=== PATIENT | male | born 1995 | race Two or more races ===

== ENCOUNTER 2018-03-04 13:10 | Emergency (ER) | payer SELFPAY ==
[~2018-03-04] VITALS: Ht 177.8 cm; Wt 81.6 kg
[~2018-03-04 13:10] MED LIST: AMOX500C2; DIPH25CA6; FAM20T PO; HYDR-3682 OR; HYDROCODON-ACETAMINOPHEN; IBUP800T24; METH4PAK PO; METH4PAK26 PO
[2018-03-04] MEDS ORDERED: cefTRIAXone SOD 1,000 MG VL IM ONE (14:30)
[2018-03-04] MEDS ORDERED: LIDOCAINE 1% HCL (LOCAL ANESTH.) INJ 20ML MDV ONE (14:56)
[2018-03-04 15:02] VITALS: BP 129/83
== END 2018-03-04 15:14 | disposition home or self-care (01) ==
LOC: ER 13:22
DX: J03.90 Acute tonsillitis, unspecified (principal); Z88.8 Allergy status to other drugs, medicaments and biological substances
CPT/HCPCS: 96372; 99283; J0696; J2001

== ENCOUNTER → 2019-09-02 | Emergency (ER) | payer MEDICAID ==
[~2019-09-02] VITALS: Ht 180.3 cm; Wt 81.6 kg
[~2019-09-02] MED LIST changes: +ACETAMINOPHEN/CODEINE#3 (300/30mg) TAB PO ONE; -FAM20T PO; +FAMO20TA10 PO; +MORPHINE SULF INJ 2 MG/ML SYRINGE 1ML IV ONE; +ONDANSETRON ODT 4 MG TAB PO ONE; +SODIUM CHLORIDE 0.9% 1,000 ML IV ONE
[2019-09-02 16:06] LABS: Albumin 3.8 g/dL (3.4-5.0); Calcium 8.6 mg/dL (8.5-10.1); Magnesium 2.3 mg/dL (1.6-2.6); Potassium 4.2 mmol/L (3.5-5.1)
[2019-09-02 16:10] LABS: Bilirubin, Total 1.3 mg/dL (0.2-1.0); Total Protein 7.3 g/dL (6.4-8.2)
[2019-09-02 16:11] LABS: Basophils # (auto) 0 10 ^3/uL (0-0.2); Basophils % (auto) 0.4 % (0.0-2.0); Eosinophils # (auto) 0.1 10 ^3/uL (0-0.8); Hematocrit 45.8 % (41.0-53.0); Lymphocytes # (auto) 1.7 10 ^3/uL (0.4-5.4); Lymphocytes % (auto) 23.6 % (10.0-50.0); Mean Corpuscular Hemoglobin 29.2 pg (28.0-32.0); Mean Corpuscular Hgb Conc. 32.7 g/dL (32.0-36.0); Mean Corpuscular Volume 89.3 fL (80.0-100.0); Monocytes # (auto) 0.6 10 ^3/uL (0-1.3); Monocytes % (auto) 7.9 % (0.0-12.0); Neutrophils # (auto) 4.8 10 ^3/uL (1.6-8.6); Neutrophils % (auto) 67.1 % (37.0-80.0); Platelet Count (auto) 222 10^3/uL (140-450); Red Blood Cells 5.13 10^6/uL (4.5-5.90); Red Cell Distribution Width 13.8 % (11.8-14.3); White Blood Cell 7.1 10^3/uL (4.4-10.8)
[2019-09-02 19:43] VITALS: BP 120/66
== END | disposition home or self-care (01) ==
LOC: ER 14:32
DX: K80.20 Calculus of gallbladder without cholecystitis without obstruction (principal); E80.7 Disorder of bilirubin metabolism, unspecified
CPT/HCPCS: 36415; 74176; 76705; 80053; 80320; 82150; 83690; 83735; 85025; 96374; 99285; J2270; J7030; Q0162

== ENCOUNTER → 2019-09-09 | Emergency (ER) | payer MEDICAID ==
[~2019-09-09] VITALS: Ht 177.8 cm; Wt 81.6 kg
[~2019-09-09] MED LIST changes: -ACETAMINOPHEN/CODEINE#3 (300/30mg) TAB PO ONE; -MORPHINE SULF INJ 2 MG/ML SYRINGE 1ML IV ONE; -ONDANSETRON ODT 4 MG TAB PO ONE
[2019-09-09 16:57] VITALS: BP 144/88
[2019-09-09 18:28] LABS: Basophils # (auto) 0 10 ^3/uL (0-0.2); Basophils % (auto) 0.5 % (0.0-2.0); Eosinophils # (auto) 0.1 10 ^3/uL (0-0.8); Eosinophils % (auto) 1.4 % (0.0-7.0); Hematocrit 45.7 % (41.0-53.0); Lymphocytes # (auto) 2.1 10 ^3/uL (0.4-5.4); Lymphocytes % (auto) 23.7 % (10.0-50.0); Mean Corpuscular Hgb Conc. 32.8 g/dL (32.0-36.0); Mean Corpuscular Volume 88.4 fL (80.0-100.0); Monocytes # (auto) 0.6 10 ^3/uL (0-1.3); Monocytes % (auto) 6.3 % (0.0-12.0); Neutrophils % (auto) 68.1 % (37.0-80.0); Nucleated Red Blood Cells % 0.1 %; Platelet Count (auto) 250 10^3/uL (140-450); Red Blood Cells 5.17 10^6/uL (4.5-5.90); Red Cell Distribution Width 13.5 % (11.8-14.3); White Blood Cell 8.9 10^3/uL (4.4-10.8)
[2019-09-09 18:41] LABS: Albumin 4.1 g/dL (3.4-5.0); Calcium 8.6 mg/dL (8.5-10.1); Potassium 3.8 mmol/L (3.5-5.1)
[2019-09-09 18:43] LABS: Urine Bacteria NONE SEEN /hpf (None Seen); Urine Blood Negative /uL (Negative); Urine Mucus FEW (None Seen); Urine Specific Gravity 1.027 (1.001-1.035); Urine WBC <1 /hpf (0 - 3)
[2019-09-09 18:45] LABS: BUN/Creatinine Ratio 12.7; Bilirubin, Total 0.7 mg/dL (0.2-1.0); Total Protein 7.9 g/dL (6.4-8.2)
[2019-09-09 18:49] LABS: Alcohol, Urine < 3.0 mg/dL (0-10); Amphetamine Screen, Urine NEGATIVE (NEGATIVE); Barbiturate Scree,Urine NEGATIVE (NEGATIVE); Benzodiazephine Screen, Urine NEGATIVE (NEGATIVE); Cannabinoid Screen, Urine POSITIVE (NEGATIVE); Cocaine Screen, Urine POSITIVE (NEGATIVE); Opiate Scree,Urine NEGATIVE (NEGATIVE); Phencyclidine Screen, Urine NEGATIVE (NEGATIVE)
== END | disposition home or self-care (01) ==
LOC: ER 16:46
DX: K82.0 Obstruction of gallbladder (principal); F12.10 Cannabis abuse, uncomplicated; F14.10 Cocaine abuse, uncomplicated; K76.0 Fatty (change of) liver, not elsewhere classified; R16.0 Hepatomegaly, not elsewhere classified
CPT/HCPCS: 36415; 74176; 76705; 80053; 80307; 81001; 82150; 83690; 85025

== ENCOUNTER 2019-10-07 05:26 | Emergency (ER) | payer MEDICAID ==
[~2019-10-07] VITALS: Ht 180.3 cm; Wt 81.6 kg
[~2019-10-07 05:26] MED LIST changes: -SODIUM CHLORIDE 0.9% 1,000 ML IV ONE
[2019-10-07] MEDS ORDERED: DexAMETHasone SOD PHOS 10MG/1ML VIAL INJ IV ONE (05:45)
[2019-10-07] MEDS ORDERED: diphenhdrAMINE HCL 50 MG/1 ML VL IV ONE (05:45)
[2019-10-07] MEDS ORDERED: FAMOTIDINE (10MG/ML) 2ML VL IV ONE (05:45)
[2019-10-07] MEDS ORDERED: ONDANSETRON HCL 4 MG/2 ML VIAL IV ONE ×2 (06:15)
[2019-10-07 06:57] VITALS: BP 143/70
== END 2019-10-07 07:03 | disposition home or self-care (01) ==
LOC: ER 05:26
DX: T78.40XA Allergy, unspecified, initial encounter (principal); L50.9 Urticaria, unspecified; X58.XXXA Exposure to other specified factors, initial encounter
CPT/HCPCS: 96374; 96375; 99284; J1100; J1200; J2405; J3490

== ENCOUNTER 2019-10-22 10:42 | Emergency (ER) | payer MEDICAID ==
[2019-10-22 11:17] VITALS: BP 143/85
[2019-10-22] MEDS ORDERED: methylPREDNISolone SOD SUCC 125 MG/2 ML VL IM ONE (12:00)
[2019-10-22] MEDS ORDERED: EPINEPHrine HCL 1 MG/1 ML AMP SC ONE (12:00)
== END 2019-10-22 12:25 | disposition home or self-care (01) ==
LOC: ER 10:42
DX: T78.40XA Allergy, unspecified, initial encounter (principal); X58.XXXA Exposure to other specified factors, initial encounter
CPT/HCPCS: 96372; 99284; J0171; J2930

== ENCOUNTER 2021-09-29 07:30 | Emergency (ER) | payer MEDICAID ==
[~2021-09-29] VITALS: Ht 177.8 cm; Wt 87.9 kg
[~2021-09-29 07:30] MED LIST changes: +DIPH25CA29; -DIPH25CA6; -IBUP800T24; +IBUP800T27
[2021-09-29 08:37] VITALS: BP 133/94
[2021-09-29] MEDS ORDERED: PRED20TA2 PO (09:39)
[2021-09-29] MEDS ORDERED: HYDR-4924 PO (09:39)
[2021-09-29] MEDS ORDERED: methylPREDNISolone SOD SUCC 125 MG/2 ML VL IM ONE (09:45)
[2021-09-29] MEDS ORDERED: diphenhdrAMINE HCL 50 MG/1 ML VL IM ONE (09:45)
== END 2021-09-29 09:51 | disposition home or self-care (01) ==
LOC: ER 07:30
DX: T78.40XA Allergy, unspecified, initial encounter (principal); Z79.1 Long term (current) use of non-steroidal anti-inflammatories (NSAID); Z79.2 Long term (current) use of antibiotics; Z79.899 Other long term (current) drug therapy; Y92.89 Other specified places as the place of occurrence of the external cause
CPT/HCPCS: 96372; 99284; J1200; J2930

== ENCOUNTER 2021-10-27 08:00 | Emergency (ER) | payer MEDICAID ==
[~2021-10-27] VITALS: Ht 177.8 cm; Wt 86.8 kg
[~2021-10-27 08:00] MED LIST changes: +HYDR-4924 PO; +PRED20TA2 PO
[2021-10-27 09:30] VITALS: BP 142/76
[2021-10-27] MEDS ORDERED: PRED20TA2 PO (09:39)
[2021-10-27] MEDS ORDERED: DIPH25CA66 PO (09:39)
[2021-10-27] MEDS ORDERED: methylPREDNISolone SOD SUCC 125 MG/2 ML VL IM ONE (09:45)
[2021-10-27] MEDS ORDERED: diphenhdrAMINE HCL 50 MG/1 ML VL IM ONE (09:45)
== END 2021-10-27 10:00 | disposition home or self-care (01) ==
LOC: ER 08:00
DX: T78.49XA Other allergy, initial encounter (principal); X58.XXXA Exposure to other specified factors, initial encounter
CPT/HCPCS: 96372; 99284; J1200; J2930

== ENCOUNTER 2021-11-01 03:36 | Emergency (ER) | payer MEDICAID ==
[~2021-11-01] VITALS: Ht 177.8 cm; Wt 91.0 kg
[2021-11-01 03:36] VITALS: BP 128/90
[~2021-11-01 03:36] MED LIST changes: +DIPH25CA66 PO
[2021-11-01] MEDS ORDERED: PRED20TA2 PO (05:20)
== END 2021-11-01 05:24 | disposition home or self-care (01) ==
LOC: ER 03:36
DX: L50.9 Urticaria, unspecified (principal)

== ENCOUNTER 2022-01-20 08:25 | Emergency (ER) | payer MEDICAID, OTHER ==
[~2022-01-20] VITALS: Ht 177.8 cm; Wt 83.8 kg
[2022-01-20 09:47] VITALS: BP 135/87
[2022-01-20] MEDS ORDERED: IBUP600T27 PO (10:45)
[2022-01-20] MEDS ORDERED: BENZ100C19 PO (10:45)
[2022-01-20] MEDS ORDERED: ACET-1158 PO (10:45)
[2022-01-21] MEDS ORDERED: PRED20TA2 PO (00:07)
[2022-01-21] MEDS ORDERED: DIPH25CA66 PO (00:07)
[2022-01-21] MEDS ORDERED: EPIN0.1I11 IJ (00:10)
== END 2022-01-20 10:46 | disposition home or self-care (01) ==
LOC: ER 08:34
DX: U07.1 COVID-19 (principal); Z79.52 Long term (current) use of systemic steroids; Z79.899 Other long term (current) drug therapy
CPT/HCPCS: 36415; 87426; 87804

== ENCOUNTER 2022-01-20 23:14 | Emergency (ER) | payer MEDICAID ==
[~2022-01-20] VITALS: Ht 177.8 cm; Wt 88.9 kg
[~2022-01-20 23:14] MED LIST changes: +ACET-1158 PO; +BENZ100C19 PO; +IBUP600T27 PO
[2022-01-20 23:25] VITALS: BP 140/86
[2022-01-21] MEDS ORDERED: DexAMETHasone SOD PHOS 10MG/1ML VIAL INJ IM ONE
[2022-01-21] MEDS ORDERED: diphenhdrAMINE HCL 50 MG/1 ML VL IM ONE
[2022-01-21] MEDS ORDERED: PRED20TA2 PO (00:07)
[2022-01-21] MEDS ORDERED: DIPH25CA66 PO (00:07)
[2022-01-21] MEDS ORDERED: EPIN0.1I11 IJ (00:10)
== END 2022-01-21 02:03 | disposition home or self-care (01) ==
LOC: ER 23:17
DX: L50.0 Allergic urticaria (principal)
CPT/HCPCS: 96372; 99284; J1100; J1200

== ENCOUNTER 2024-10-20 22:53 | Emergency (ER) | payer MEDICAID ==
[~2024-10-20] VITALS: Ht 177.8 cm; Wt 89.5 kg
[~2024-10-20 22:53] MED LIST changes: -ACET-1158 PO; +ACET500T58 PO; +DIPH-753; -DIPH25CA29; +EPIN0.1I11 IJ; +IBUP-1454 PO; +IBUP-1456; -IBUP600T27 PO; -IBUP800T27
[2024-10-20] MEDS: SODIUM CHLORIDE 0.9% 1,000 ML IV ONE (23:15)
[2024-10-21 00:14] VITALS: BP 125/74; PULSE 70; RESP 18; TEMP 97.6; O2SAT 97
[2024-10-21] MEDS: FAMOTIDINE (10MG/ML) 2ML VL IV ONE (00:14)
[2024-10-21] MEDS: methylPREDNISolone SOD SUCC 125 MG/2 ML VL IV ONE (00:14)
[2024-10-21] MEDS: diphenhdrAMINE HCL 50 MG/1 ML VL IV ONE (00:14)
[2024-10-21] MEDS ORDERED: METH4PAK PO (01:48)
[2024-10-21] MEDS ORDERED: FAMO20TA10 PO (01:48)
--- NOTE | 2024-10-21 01:49 | ED.PDOC ---
HPI Allergic reaction HPI Comments 28-year-old male presents to the ED chief complaint itchy rash. Patient states symptoms started about two weeks ago has been on and off with hives he reports no known allergies denies any new pets laundry detergents foods or medications. Denies fever, chills, nausea, vomiting, chest pain, difficulty breathing, sh ortness of breath, or throat swelling. Chief Complaint: Allergic Reaction Time Seen by MD: 23:09 Primary Care Provider: dwayne Reviewed Notes: Nurses Notes, Medications, Allergies Allergies: Coded Allergies: NO KNOWN ALLERGIES (Unverified , 09/09/19) Home Meds Active Scripts Epinephrine (Anaphylaxis) (Auvi-Q) 0.1 Mg/0.1 Ml Inj, 0.3 MG IJ O PRN for 1 Day, #1 INJ 1 Refill Prov:AMBER RAZA [facility] 01/21/22 Diphenhydramine Hcl (Benadryl Allergy) 25 Mg Cap, 1 CAP PO Q4HPRN PRN, #30 CAP 0 Refills 1-2 caps PO q4-6h PRN (max 12 caps in 24 hours) Prov:AMBER RAZA [facility] 01/21/22 Prednisone (Prednisone) 20 Mg Tab, 20 MG PO DAILY for 5 Days, #5 TAB 0 Refills Prov:AMBER RAZA [facility] 01/21/22 Benzonatate (Tessalon Perles) 100 Mg Cap, 1 CAP PO TID, #21 CAP Prov:GISELLE CARVAJAL PAC 01/20/22 Ibuprofen (Ibuprofen) 600 Mg Tab, 1 TAB PO TID, #30 TAB Prov:GISELLE CARVAJAL PAC 01/20/22 Acetaminophen (Acetaminophen) 500 Mg Tab, 500 MG PO Q4HPRN PRN, #30 TAB Prov:GISELLE CARVAJAL PAC 01/20/22 Prednisone (Prednisone) 20 Mg Tab, 20 MG PO DAILY for 10 Days, #10 TAB Prov:MANUEL CHAWLA [facility]FERRAL NURSE 11/01/21 Diphenhydramine Hcl (Benadryl Allergy) 25 Mg Cap, 1 CAP PO Q6HPRN, #30 CAP 0 Refills Prov:GARETH BLACKBURN 10/27/21 Prednisone (Prednisone) 20 Mg Tab, 20 MG PO BID for 5 Days, #10 MG 0 Refills Prov:FAVGARETH LAZO MADELAINE 10/27/21 Hydroxyzine HCl (Hydroxyzine Hydrochloride) 25 Mg Tab, 25 MG PO Q8HP, #30 TAB 0 Refills Prov:STEFFANIECLIFTONGARETH MADELAINE 09/29/21 Prednisone (Prednisone) 20 Mg Tab, 20 MG PO BID for 5 Days, #10 MG 0 Refills Prov:STEFFANIEGARETH LAZO MADELAINE 09/29/21 Reported Medications Methylprednisolone (Medrol Dosepak) 4 Mg Sterling, 4 MG PO 01/22/14 Famotidine (PEPCID TABLET) 20 Mg Tb, 1 TAB PO BID, #60 TAB 5 Refills 01/22/14 Ibuprofen (Ibuprofen) 800 Mg Tab, #21 01/22/14 [Hydrocodon-Acetaminophen] No Conflict Check, #12 01/22/14 Diphenhydramine Hcl (Diphenhydramine Hcl) 25 Mg Cap, #60 01/22/14 Amoxicillin Trihydrate (Amoxicillin) 500 Mg Cap, #14 01/22/14 Methylprednisolone (Methylprednisolone) 4 Mg Sterling, 4 MG PO 12/17/11 Hydroxyzine Hcl (Hydroxyzine Hcl) 25 Mg Tab, 25 MG OR Q6HP 12/17/11 Mode of Arrival: Ambulatory Past Medical History PAST MEDICAL HISTORY: Gallstones Surgical History: Denies all surgeries Family History Family History: Reviewed,noncontributory to illness, Unknown Social History Smoker: Non-Smoker Alcohol: Occasionally Drugs: Denies Drug Use Lives In: Home All Other Systems: Reviewed and Negative (see hpi) Physical Exam General Appearance: No Apparent Distress, Normal HEENT: Pharynx Normal Neck: Full Range of Motion, Non-Tender Respiratory: Lungs Clear, No Respiratory Distress, Normal Breath Sounds Cardiovascular: No Edema, No JVD, No Murmur, No Gallop, Normal Peripheral Pulses, Regular Rate/Rhythm Breast Exam: Deferred Gastrointestinal: No Organomegaly, Non Tender, No Pulsatile Mass, Normal Bowel Sounds, Soft Genitalia: Deferred Pelvic: Deferred Rectal: Deferred Extremities: Normal capillary refill, Normal range of motion, No pedal edema Musculoskeletal : Apperance: Normal Neurologic: Alert, No Motor Deficits, Normal Affect, Normal Mood, No Sensory Deficits Cerebellar Function: Normal Reflexes: NOT DONE Skin: Dry, Normal Color, Rash (Urticarial rash noted bilateral arms face and trunk no noted excoriations or open lesions or drainage.), Warm Lymphatic: No Adenopathy Was a procedure done? Was a procedure done?: No Differential diagnosis (all) Differential Diagnosis: Anaphylaxis, Angioedema, Bronchospasm, Drug Reaction, Hypotension, Shock, Urticaria X-Ray, Labs, Meds, VS Vital Signs Date Time Temp Pulse Resp B/P (MAP) Pulse Ox O2 Delivery O2 Flow Rate FiO2 10/21/24 00:14 97.6 70 18 125/74 (91) 97 97.6 10/21/24 00:14 70 18 97 Room Air 10/20/24 23:02 97.9 62 18 124/67 96 97.9 Current Medications Medications (Trade) Dose Ordered Sig/Jose Route Start Time Stop Time Status Last Admin Methylprednisolone Sodium Succinate (Solu Medrol) 125 mg ONCE ONCE IV 10/20/24 23:15 10/20/24 23:16 DC 10/21/24 00:14 Famotidine (Pepcid Injection) 20 mg ONCE ONCE IV 10/20/24 23:15 10/20/24 23:16 DC 10/21/24 00:14 Sodium Chloride 1,000 ml @ 1,000 mls/hr Q1H ONCE IV 10/20/24 23:15 10/21/24 00:14 DC 10/20/24 23:15 Diphenhydramine HCl (Benadryl Injection) 25 mg ONCE ONCE IV 10/20/24 23:15 10/20/24 23:16 DC 10/21/24 00:14 X-Ray, Labs, Meds, VS Comment Patient was given IV fluids 1 L, Pepcid 20 mg IV push, Benadryl 25 mg IV push, and Solu-Medrol 125 mg IV push. Reports improvement in rash noted improvement visualized patient requesting discharge at this time. Script trial of Medrol Dosepak and Pepcid advised take medication as prescribed side effects discussed. Advised to follow up with his PCP in 2-3 days as needed consider referral to residential concierge symptoms persist ER return precautions given patient indicates un derstanding agrees with discharge plan of care. Time of 1ST Reevaluation: 23:30 Reevaluation 1ST: Unchanged Time of 2ND Reevaluation: 01:46 Reevaluation 2ND: Improved Patient Education/Counseling: Diagnosis, Treatment, Prognosis, Need For Follow Up Family Education/Counseling: Diagnosis, Treatment, Prognosis, Need For Follow Up SEPSIS Sepsis Screen Date sepsis recognized/suspect: Oct 20, 2024 Time Sepsis recognized/suspect: 2305 Recent Procedure: No On Antibiotic Therapy: No Respiratory Rate >20: No Heart Rate >90: No Temp<36 C (96.8 F) or >38.3 C: No SBP <90 or MAP <65 mmHG: No New Acute Mental Status Change: No Is the patient on CPAP, BIPAP,: No Vital Signs Date Time Temp Pulse Resp B/P (MAP) Pulse Ox O2 Delivery O2 Flow Rate FiO2 10/21/24 00:14 97.6 70 18 125/74 (91) 97 97.6 10/21/24 00:14 70 18 97 Room Air 10/20/24 23:02 97.9 62 18 124/67 96 97.9 Medications Medications Dose Ordered Sig/Jose Route Start Time Stop Time Status Last Admin Dose Admin Diphenhydramine HCl 25 mg ONCE ONCE IV 10/20/24 23:15 10/20/24 23:16 DC 10/21/24 00:14 Famotidine 20 mg ONCE ONCE IV 10/20/24 23:15 10/20/24 23:16 DC 10/21/24 00:14 Methylprednisolone Sodium Succinate 125 mg ONCE ONCE IV 10/20/24 23:15 10/20/24 23:16 DC 10/21/24 00:14 Sodium Chloride 1,000 ml @ 1,000 mls/hr Q1H ONCE IV 10/20/24 23:15 10/21/24 00:14 DC 10/20/24 23:15 Departure 1 Departure Time of Disposition: 01:46 Impression: Primary Impression: Allergic reaction Qualified Codes: T78.40XA - Allergy, unspecified, initial encounter Disposition: HOME / SELF CARE / HOMELESS Condition: Stable e-Prescriptions Famotidine (PEPCID TABLET) 20 Mg Tb 1 TAB PO BID for 6 Days, #12 TAB Prov: MIKHAIL BURRIS 10/21/24 Methylprednisolone (Medrol Dosepak) 4 Mg Sterling 4 MG PO UD for 6 Days, #21 TAB UAD Prov: MIKHAIL BURRIS 10/21/24 Discharged With: Spouse Critical Care Note Critical Care Time?: No Stability Stability form required: MIKHAIL Knutson Oct 21, 2024 01:49
== END 2024-10-21 02:10 | disposition home or self-care (01) ==
LOC: ER 22:53
DX: L50.9 Urticaria, unspecified (principal); T78.40XA Allergy, unspecified, initial encounter; X58.XXXA Exposure to other specified factors, initial encounter
CPT/HCPCS: 96361; 96374; 96375; 99284; J1200; J2919; J3490; J7030

== ENCOUNTER 2025-01-13 18:24 | Emergency (ER) | payer MEDICAID ==
[~2025-01-13] VITALS: Ht 180.3 cm; Wt 81.7 kg
[2025-01-13] MEDS: FAMOTIDINE (10MG/ML) 2ML VL IV ONE (19:02)
[2025-01-13] MEDS: METOCLOPRAMIDE HCL 5MG/ml INJ 2ml VIAL IV ONE (19:02)
[2025-01-13] MEDS: SODIUM CHLORIDE 0.9% 2,000 ML IV ONE (19:02)
[2025-01-13 19:19] LABS: Alanine Aminotransferase 24 U/L (7-40); Alkaline Phosphatase 68 U/L (46-116); Anion Gap 16 (5-15); BUN/Creatinine Ratio 8.4 (10.0-20.0); Calcium 10.2 mg/dL (8.7-10.4); Carbon Dioxide 23 mmol/L (20-31); Hematocrit 50.1 % (41.0-53.0); Hemoglobin 17.0 g/dL (13.5-17.5); Lipase 36 U/L (12-53); Mean Corpuscular Hemoglobin 29.5 pg (28.0-32.0); Mean Corpuscular Volume 87.2 fL (80.0-100.0); Nucleated Red Blood Cells % 0.1 %; Potassium 4.0 mmol/L (3.5-5.1)
[2025-01-13 19:24] LABS: Albumin 5.6 g/dL (3.2-4.8); Bilirubin, Total 1.4 mg/dL (0.2-1.0); Blood Urea Nitrogen 7 mg/dL (9-23); Chloride 107 mmol/L (98-107); Glucose 124 mg/dL (74-106); Sodium 146 mmol/L (136-145); Total Protein 9.0 g/dL (5.7-8.2)
--- NOTE | 2025-01-13 19:50 | ED.PDOC ---
GI ASSESSMENT HPI Comments 30-year-old male presents to the ED chief complaint nausea and vomiting times 24 hours. Patient states unable to keep anything down including clear liquids. reports some abdominal cramping. Denies diarrhea, fever, chills, anybody else with the same symptoms denies chest pain difficulty breathing or shortness of breath notes no recent travel Chief Complaint: Nausea/Vomiting Time Seen by MD: 18:33 Primary Care Provider: dwayne Reviewed Notes: Nurses Notes, Medications, Allergies Allergies: Coded Allergies: NO KNOWN ALLERGIES (Unverified , 09/09/19) Home Meds Active Scripts Epinephrine (Anaphylaxis) (Auvi-Q) 0.1 Mg/0.1 Ml Inj, 0.3 MG IJ O PRN for 1 Day, #1 INJ 1 Refill Prov:AMBER RAZA [facility] 01/21/22 Diphenhydramine Hcl (Benadryl Allergy) 25 Mg Cap, 1 CAP PO Q4HPRN PRN, #30 CAP 0 Refills 1-2 caps PO q4-6h PRN (max 12 caps in 24 hours) Prov:AMBER RAZA [facility] PICKER 01/21/22 Prednisone (Prednisone) 20 Mg Tab, 20 MG PO DAILY for 5 Days, #5 TAB 0 Refills Prov:AMBER RAZA [facility] 01/21/22 Benzonatate (Tessalon Perles) 100 Mg Cap, 1 CAP PO TID, #21 CAP Prov:GISELLE CARVAJAL PAC 01/20/22 Ibuprofen (Ibuprofen) 600 Mg Tab, 1 TAB PO TID, #30 TAB Prov:GISELLE CARVAJAL PAC 01/20/22 Acetaminophen (Acetaminophen) 500 Mg Tab, 500 MG PO Q4HPRN PRN, #30 TAB Prov:GISELLE CARVAJAL PAC 01/20/22 Prednisone (Prednisone) 20 Mg Tab, 20 MG PO DAILY for 10 Days, #10 TAB Prov:MANUEL BHAT BURR PICKER 11/01/21 Diphenhydramine Hcl (Benadryl Allergy) 25 Mg Cap, 1 CAP PO Q6HPRN, #30 CAP 0 Refills Prov:GARETH BLACKBURN 10/27/21 Prednisone (Prednisone) 20 Mg Tab, 20 MG PO BID for 5 Days, #10 MG 0 Refills Prov:GARETH BLACKBURN 10/27/21 Hydroxyzine HCl (Hydroxyzine Hydrochloride) 25 Mg Tab, 25 MG PO Q8HP, #30 TAB 0 Refills Prov:STEFFANIECLIFTONGARETH 09/29/21 Prednisone (Prednisone) 20 Mg Tab, 20 MG PO BID for 5 Days, #10 MG 0 Refills Prov:GARETH BLACKBURN 09/29/21 Reported Medications Methylprednisolone (Medrol Dosepak) 4 Mg Sterling, 4 MG PO 01/22/14 Famotidine (PEPCID TABLET) 20 Mg Tb, 1 TAB PO BID, #60 TAB 5 Refills 01/22/14 Ibuprofen (Ibuprofen) 800 Mg Tab, #21 01/22/14 [Hydrocodon-Acetaminophen] No Conflict Check, #12 01/22/14 Diphenhydramine Hcl (Diphenhydramine Hcl) 25 Mg Cap, #60 01/22/14 Amoxicillin Trihydrate (Amoxicillin) 500 Mg Cap, #14 01/22/14 Methylprednisolone (Methylprednisolone) 4 Mg Sterling, 4 MG PO 12/17/11 Hydroxyzine Hcl (Hydroxyzine Hcl) 25 Mg Tab, 25 MG OR Q6HP 12/17/11 Mode of Arrival: Ambulatory Past Medical History PAST MEDICAL HISTORY: Denies Surgical History: Denies all surgeries Family History Family History: Reviewed,noncontributory to illness, Unknown Social History Smoker: Non-Smoker Alcohol: Occasionally Drugs: Denies Drug Use Lives In: Home All Other Systems: Reviewed and Negative (See HPI) Physical Exam General Appearance: No Apparent Distress, Normal HEENT: Normal ENT Inspection, Pharynx Normal, TMs Normal Neck: Full Range of Motion, Non-Tender Respiratory: Lungs Clear, No Respiratory Distress, Normal Breath Sounds Cardiovascular: No Edema, No JVD, No Murmur, No Gallop, Normal Peripheral Pulses, Regular Rate/Rhythm Breast Exam: Deferred Gastrointestinal: No Organomegaly, Non Tender, No Pulsatile Mass, Normal Bowel Sounds, Soft Genitalia: Deferred Pelvic: Deferred Rectal: Deferred Extremities: Normal capillary refill, Normal range of motion, No pedal edema Musculoskeletal : Apperance: Normal Neurologic: Alert, No Motor Deficits, Normal Affect, Normal Mood, No Sensory Deficits Cerebellar Function: Normal Reflexes: NOT DONE Skin: Dry, Normal Color, Warm Lymphatic: No Adenopathy Was a procedure done? Was a procedure done?: No GI differential Dx Differential Diagnosis: Bowel Obstruction, Cholangitis, Cholecystitis, Gastritis/PUD, Gastroenteritis, Pancreatitis, Urolithiasis, Dehydration, Diabetes/ DKA, Electrolyte Imbalance, Food Poisoning, Bacterial, Parasitic X-Ray, Labs, Meds, VS Vital Signs Date Time Temp Pulse Resp B/P (MAP) Pulse Ox O2 Delivery O2 Flow Rate FiO2 01/13/25 18:26 98.7 96 18 153/103 97 98.7 Lab Test 01/13/25 18:40 Range/Units White Blood Count 12.9 H 4.4-10.8 10^3/uL Red Blood Count 5.74 4.5-5.90 10^6/uL Hemoglobin 17.0 13.5-17.5 g/dL Hematocrit 50.1 41.0-53.0 % Mean Corpuscular Volume 87.2 80.0-100.0 fL Mean Corpuscular Hemoglobin 29.5 28.0-32.0 pg Mean Corpuscular Hemoglobin Concent 33.9 32.0-36.0 g/dL Red Cell Distribution Width 13.6 11.8-14.3 % Platelet Count 310 140-450 10^3/uL Mean Platelet Volume 7.7 6.9-10.8 fL Neutrophils (%) (Auto) 78.0 37.0-80.0 % Lymphocytes (%) (Auto) 16.9 10.0-50.0 % Monocytes (%) (Auto) 4.8 0.0-12.0 % Eosinophils (%) (Auto) 0.1 0.0-7.0 % Basophils (%) (Auto) 0.2 0.0-2.0 % Neutrophils # (Auto) 10.1 H 1.6-8.6 10 ^3/uL Lymphocytes # (Auto) 2.2 0.4-5.4 10 ^3/uL Monocytes # (Auto) 0.6 0-1.3 10 ^3/uL Eosinophils # (Auto) 0 0-0.8 10 ^3/uL Basophils # (Auto) 0 0-0.2 10 ^3/uL Nucleated Red Blood Cells 0.1 % Sodium Level 146 H 136-145 mmol/L Potassium Level 4.0 3.5-5.1 mmol/L Chloride Level 107 98-107 mmol/L Carbon Dioxide Level 23 20-31 mmol/L Anion Gap 16 H 5-15 Blood Urea Nitrogen 7 L 9-23 mg/dL Creatinine 0.83 0.700-1.30 mg/dL Glomerular Filtration Rate Calc 121 >90 mL/min BUN/Creatinine Ratio 8.4 L 10.0-20.0 Serum Glucose 124 H 74-106 mg/dL Calcium Level 10.2 8.7-10.4 mg/dL Total Bilirubin 1.4 H 0.2-1.0 mg/dL Aspartate Amino Transferase (AST) 20 13-40 U/L Alanine Aminotransferase (ALT) 24 7-40 U/L Alkaline Phosphatase 68 46-116 U/L Total Protein 9.0 H 5.7-8.2 g/dL Albumin 5.6 H 3.2-4.8 g/dL Lipase 36 12-53 U/L Current Medications Medications (Trade) Dose Ordered Sig/Jose Route Start Time Stop Time Status Last Admin Sodium Chloride 2,000 ml @ 1,000 mls/hr Q2H ONCE IV 01/13/25 18:45 01/13/25 20:44 01/13/25 19:02 Metoclopramide HCl (Reglan Injection) 5 mg ONCE ONCE IV 01/13/25 18:45 01/13/25 18:46 DC 01/13/25 19:02 Famotidine (Pepcid Injection) 20 mg ONCE ONCE IV 01/13/25 18:45 01/13/25 18:46 DC 01/13/25 19:02 X-Ray, Labs, Meds, VS Comment CBC CMP reviewed. Elevated white blood cell count likely secondary to vomiting. Patient was given 1 L of fluid Pepcid and Reglan he reports moderate improvem ent able to keep down p.o. fluids requesting discharge at this time. Trial of Pepcid and Zofran. Advised medications as prescribed side effects discussed. Advised continue with p.o. electrolytes sips until tolerated and then start introducing food as tolerated. Follow up PCP in 2-3 days as necessary ER return precautions given patient indicates understanding and agrees with discharge plan of care. Time of 1ST Reevaluation: 18:33 Reevaluation 1ST: Unchanged Time of 2ND Reevaluation: 19:53 Reevaluation 2ND: Improved Patient Education/Counseling: Diagnosis, Treatment, Need For Follow Up Family Education/Counseling: No Family Present SEPSIS Sepsis Screen Date sepsis recognized/suspect: Jan 13, 2025 Time Sepsis recognized/suspect: 1827 Recent Procedure: No On Antibiotic Therapy: No Respiratory Rate >20: No Heart Rate >90: Yes Temp<36 C (96.8 F) or >38.3 C: No SBP <90 or MAP <65 mmHG: No New Acute Mental Status Change: No Is the patient on CPAP, BIPAP,: No Physician Orders Sodium Chloride 0.9% (01/13/25 18:45) Vital Signs Date Time Temp Pulse Resp B/P (MAP) Pulse Ox O2 Delivery O2 Flow Rate FiO2 01/13/25 18:26 98.7 96 18 153/103 97 98.7 Laboratory Tests Test 01/13/25 18:40 White Blood Count 12.9 10^3/uL (4.4-10.8) H Medications Medications Dose Ordered Sig/Jose Route Start Time Stop Time Status Last Admin Dose Admin Famotidine 20 mg ONCE ONCE IV 01/13/25 18:45 01/13/25 18:46 DC 01/13/25 19:02 Metoclopramide HCl 5 mg ONCE ONCE IV 01/13/25 18:45 01/13/25 18:46 DC 01/13/25 19:02 Sodium Chloride 2,000 ml @ 1,000 mls/hr Q2H ONCE IV 01/13/25 18:45 01/13/25 20:44 01/13/25 19:02 Departure 1 Departure Time of Disposition: 19:51 Impression: Primary Impression: Nausea and vomiting Qualified Codes: R11.2 - Nausea with vomiting, unspecified Disposition: HOME / SELF CARE / HOMELESS Condition: Stable e-Prescriptions Famotidine (PEPCID TABLET) 20 Mg Tb 1 TAB PO BID for 5 Days, #10 TAB Prov: MIKHAIL BURRIS 01/13/25 Ondansetron Odt 4MG Tab (ZOFRAN PO) 4 Mg Tb 4 MG PO TID PRN for 4 Days, #12 TAB ODT TAB-DISSOLVE IN MOUTH, THEN SWALLOW Prov: MIKHAIL BURRIS 01/13/25 Discharged With: Self Critical Care Note Critical Care Time?: No Stability Stability form required: MIKHAIL Knutson Jan 13, 2025 19:50
[2025-01-13] MEDS ORDERED: ZOFR4T PO (19:53)
[2025-01-13] MEDS ORDERED: FAMO20TA10 PO (19:53)
[2025-01-13 20:05] VITALS: BP 138/85; PULSE 70; RESP 17; TEMP 99.2; O2SAT 96
== END 2025-01-13 20:12 | disposition home or self-care (01) ==
LOC: ER 18:24
DX: R11.2 Nausea with vomiting, unspecified (principal); F10.90 Alcohol use, unspecified, uncomplicated; Z79.899 Other long term (current) drug therapy; Z79.52 Long term (current) use of systemic steroids; Z79.1 Long term (current) use of non-steroidal anti-inflammatories (NSAID)
CPT/HCPCS: 36415; 80053; 83690; 85025; 96361; 96374; 96375; 99284; J2765; J3490; J7030